=== PATIENT | male | born 1960 ===

== ENCOUNTER 2017-01-15 11:30 | Inpatient (IN) | payer MEDICARE ==
[~2017-01-15] VITALS: Ht 172.7 cm; Wt 97.9 kg
--- NOTE | ~2017-01-15 | OR ---
PATIENT'S NAME: ELIU RICHARDSON [facility] AGE: 56 Y [address] ROOM: [place] [address] LOCATION: [facility] [place] ADMIT DATE: 01/15/2017 OR/Procedure Report DISCHARGE DATE: 01/22/2017 FAMILY PHYSICIAN: Jelani Tello MD ATTENDING PHYSICIAN: Jelani Tello SURGEON: Lester Khan MD OPTOMECHANICAL ENGINEER: DATE OF PROCEDURE: 01/18/2017 PREOPERATIVE DIAGNOSIS: Left knee pain and effusion. POSTOPERATIVE DIAGNOSIS: Left knee pain and effusion. OPERATION: Aspiration, left knee. INDICATIONS: This is a 56-year-old male with pain and effusion in his left knee. DESCRIPTION OF PROCEDURE: The patient was seen in his room and his left knee prepped with chlorhexidine. An 18-gauge needle was used in the suprapatellar pouch and 35 mL of cloudy yellow fluid was aspirated. This was sent to the lab for cell count, crystals, Gram stain, and cultures. The 18-gauge needle was left in the joint and the joint injected with 2 mL of Xylocaine, 2 mL of Marcaine, and 80 mg of Depo-Medrol. The needle was removed. The patient tolerated the procedure well. MD MAGGI TIAN/modl /[id number] d: 01/18/172112 t: 01/27/17 1036, OPERATIVE SUMMARY
--- NOTE | ~2017-01-15 | CON ---
PATIENT'S NAME: ELIU RICHARDSON [facility] AGE: 56 Y [address] ROOM: [address] [address] [facility]: [facility] ADMIT DATE: 01/15/2017 Consultation DISCHARGE DATE: FAMILY PHYSICIAN: CODEY TELLO MD ATTENDING PHYSICIAN: CODEY TELLO REFERRING PHYSICIAN: Jacky Valencia MD HISTORY OF PRESENT ILLNESS: The patient's regular speech professor is Dr. Valnecia. Mr. Richardson is admitted from Dr. Tello office where he presented with volume overload. Mr. Richardson has history of congestive heart failure since at least 2011; at that point, he received cardioverter-defibrillator. Recently, he was taking no medications for heart failure, he says that he cannot afford them; although, he has Medicare has not applied for a Part D plan. He says that he was not aware of any fluid restriction and was not aware about dietary restrictions. He monitors his weight a few times a week. He indicates that his dry weight is about 228 and now he is up to 252. He denies any chest pain. He is diabetic. MEDICATIONS: The outpatient medications he mentioned was: 1. Sitagliptin metformin 1 tablet twice a day. 2. Insulin glargine 50 units subcutaneously. 3. Acetaminophen as needed. FAMILY HISTORY: His family history shows that both his parents from myocardial infarctions in their 80s. SOCIAL HISTORY: The patient is . 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 He stopped smoking more than 20 years ago. He denies any drug use and any significant alcohol use. PAST MEDICAL HISTORY: Reveals that he had at least 1 stent in the left anterior descending artery in January 2005. The patient and his do not really remember if he had any more and do not have the wallet cards with them. He also has history of morbid obesity and sleep apnea. PAST SURGICAL HISTORY: Cardioverter-defibrillator, left wrist tendon transfer, and C-spine and left knee. REVIEW OF SYSTEMS: Positive for gradual lower peripheral edema. He denies chest pain and denies syncope. Remaining systems are negative. PATIENT'S NAME: ELIU RICHARDSON [facility] AGE: 56 Y [address]: [address] [address] LOCATION: [facility] ADMIT DATE: 01/15/2017 Consultation DISCHARGE DATE: FAMILY PHYSICIAN: CODEY TELLO MD ATTENDING PHYSICIAN: CODEY TELLO PHYSICAL EXAMINATION: VITAL SIGNS: He is 5 inches, 8 ounces, weighs 115.2 kg, blood pressure 109/69, pulse is 101, temperature 98 degrees. NECK: There is some elevation of the jugular venous pressure. No carotid bruits. Neck is supple. HEAD: Normocephalic and atraumatic. LUNGS: There are basilar [facility] up bilaterally. HEART: Regular first and second heart sounds. ABDOMEN: Obese, nontender. EXTREMITIES: Lower extremities, 3+ edema up to the midthighs. There is no scrotal edema. There is no presacral edema. Pedal pulse is not easily palpable. DIAGNOSTIC STUDIES: Electrocardiogram shows sinus rhythm, right axis, low voltage in the limb leads, and poor R-wave progression in the precordial leads. Chest x-ray was interpreted as showing stable cardiomegaly, mild pulmonary venous hypertension and no CHF or pneumonia. Echocardiogram has been completed, which I interpreted. It shows that there is biventricular enlargement. The ejection fraction is about 10% to 15%. IMPRESSION: 1. Severe systolic heart failure, unqxm-du-hecnchy. 2. Coronary artery disease. 3. Noncompliance with medications. 4. Diabetes type 2. 5. Obesity. PLAN: I will put the patient wlglpb-qac-lrrvz intravenous Lasix with a morning dose of metolazone. I will start him on a low dose of carvedilol and as his blood pressure tolerates add either an SOY inhibitor or Entresto if I can figure out a way to make it affordable. We will check a D-dimer. His 1st troponin was by Dr. Tello was mildly elevated; so, we will repeat it. Thank you for allowing [facility] to assist in the care of your patient. KANDY MARIE MD PE/joanl PATIENT'S NAME: ELIU RICHARDSON [facility] AGE: 56 Y [address] ROOM: [place] [address] LOC[facility] ADMIT DATE: 01/15/2017 Consultation DISCHARGE DATE: FAMILY PHYSICIAN: CODEY TELLO MD ATTENDING PHYSICIAN: CODEY TELLO /[id number] d: 01/16/17 0038 t: 01/16/17 1131, CONSULTATION REPORT
--- NOTE | ~2017-01-15 | DS ---
PATIENT'S NAME: ELIU RICHARDSON [facility] AGE: 56 Y [address] ROOM: [address] [place], [place] [address] LOCATION: [facility] [place] ADMIT DATE: 01/15/2017 Discharge Summary DISCHARGE DATE: 01/22/2017 FAMILY PHYSICIAN: Jelani Tello MD ATTENDING PHYSICIAN: Jelani Tello FINAL DIAGNOSES: 1. Nyrcb-ho-bhrjczo congestive heart failure, severe. 2. History of coronary artery disease. 3. Noncompliance. 4. Diabetes mellitus, type 2. 5. Morbid exogenous obesity. HOSPITAL COURSE: The patient was admitted to the hospital with marked increasing edema and 3-pillow orthopnea. Consultation was obtained with Dr. Pugh, preconstruction manager. The patient's primary preconstruction manager, Dr. Valencia was out of town and Dr. Pugh was covering for him. The patient was admitted to the hospital. His EKG showed sinus rhythm with low voltage. His echocardiogram showed a mild pulmonary venous hypertension and echo showed 10% to 15% ejection fraction. The patient during his hospitalization required intensive care mobilization. He also developed left knee pain and was seen in consultation by Dr. Lester Khan, orthopedic surgeon, and had his knee drained. See Dr. Khan's notation. The patient was felt to have reached maximal hospital benefit with medication adjustment on the date shown and was dismissed from the hospital in improved condition with a guarded prognosis because of his noncompliance with diabetes mellitus type 2 requiring insulin and his chronic congestive heart failure with acute exacerbation. He is to see me in the office in 1 week and follow up with cardiologists as they indicate. The cardiologists have blessed his medication on dismissal. JELANI TELLO MD CLIENT ACCOUNT REPRESENTATIVE/modl /[id number] d: t: 01/27/17 0945, DISCHARGE SUMMARY
--- NOTE | ~2017-01-15 | CON ---
PATIENT'S NAME: [facility] AGE: 56 Y [address] ROOM: [place] [address] LOCATION: [facility] ADMIT DATE: 01/15/2017 Consultation DISCHARGE DATE: FAMILY PHYSICIAN: CODEY JC MD ATTENDING PHYSICIAN: CODEY JC REFERRING PHYSICIAN: Jacky Valencia MD SUBJECTIVE: I was asked to see this 56-year-old male diabetic, who is hospitalized for an episode of acute on chronic congestive heart failure. He has a history of [place] in the past and this morning, he awakened with the swelling and pain in his left knee. His left knee has a history of having had a patellar realignment procedure of many years ago for patellar dislocations. ALLERGIES: NO KNOWN ALLERGIES. MEDICATIONS: 1. Insulin glargine 50 units subcu. 2. Sitagliptin metformin 1 tablet twice a day. OPERATIONS: He has had cardioverter/defibrillator since 2011. He has had tendon transfer of his left wrist for apparently a wrist drop in the past. He had his left knee patellar realignment in the remote past and also an operation on his cervical spine. ILLNESSES: He has diabetes type 2. He also has coronary artery disease and has had several procedures from that. HABITS: He denies tobacco, drug, or alcohol use or abuse. FAMILY HISTORY: Parents lived to be in their 80s and from heart attacks. REVIEW OF SYSTEMS: He denies chest pain or difficulty breathing. He does note fluid retention in his legs. He has sleep apnea and uses CPAP machine. He has a history of morbid obesity. PHYSICAL EXAMINATION: GENERAL: This is a well-developed and well-nourished male, who is alert and cooperative. VITAL SIGNS: Pulse 93, respirations 13, temperature 98 degrees, O2 saturation PATIENT'S NAME: [facility] AGE: 56 Y [address] ROOM: [place] [address] LOCATION: [facility] ADMIT DATE: 01/15/2017 Consultation DISCHARGE DATE: FAMILY PHYSICIAN: CODEY JC MD ATTENDING PHYSICIAN: CODEY JC 97%, and blood pressure 92/59. HEENT: Head normocephalic and atraumatic. NECK: Supple. CHEST: Nontender. HEART: Regular rhythm. LUNGS: Clear to auscultation. ABDOMEN: Soft. EXTREMITIES: He has about 2+ pitting edema of both his lower extremities. On examination of his left knee, he has a well-healed long anteromedial surgical scar. There is no erythema about the knee. He is able to extend the knee fully and he does have at least a 2/4 effusion in the knee. IMAGING: Single knee radiographs from 2004 is reviewed. This shows a staple in the anterior tibial tubercle with complete loss of the patellofemoral joint space and calcification of the medial and lateral menisci. IMPRESSION: 1. Probable pseudogout, but we are not able to rule out septic arthritis. 2. Congestive heart failure. 3. Insulin-dependent adult diabetes mellitus. 4. Obesity. PLAN: The knee will be aspirated and injected as index of suspicion for sepsis is quite low. The procedure, its risks, benefits, and alternatives were discussed with the patient, who appears to understand and requests to proceed. MD MAGGI TIAN/jillian /[id number] d: 01/18/17 2139 t: 01/20/17 0910, CONSULTATION REPORT
--- NOTE | ~2017-01-15 | ECHO ---
Transthoracic Echocardiography Report (TTE) Demographics Patient Name ELIU RICHARDSON Date of Study 01/15/2017 Patient Number [id number] Visit Number [id number] Date of 1960 Room Number G6211 Gender Male Number Age 56 year(s) Referring Elisha Gaxiola Pinball Machine Repairer Latrice Atkinson RVT, Physician RD Physician Interpreting Keaton Jama Data Control Clerk Supervisor Physician Sal LOPEZ Supervising Ordering Elisha Gaxiola MD, MD/MLP Physician Nurse Stress Intern Retail Conclusions Summary Technically difficult exam. Definity used to better delineate endocardial borders. The left ventricle is mildly to moderately dilated . Estimated EF 15% Diastolic assessment reveals Grade III restrictive diastolic dysfunction. Moderately dilated right ventricle with severely reduced function. Device lead noted in the right ventricle. Mild tricuspid regurgitation by color Doppler. There is moderately pulmonary hypertension. The pulmonary pressure (RVSP) is 55 mmHg. Procedure Type of Study TTE procedure:2D Echocardiogram, Echo with Contrast. Procedure Date Date: 01/15/2017 Start: 01:27 PM Study Location: Inpatient Portable Technical Quality: Limited visualization due to body habitus. Indications:CHF. Appropriate Use Criteria: 8 Patient Status: Routine Contrast Medium: Definity. Amount - 4 ml Rhythm: NSR HR: 97 bpm BP: 116/73 mmHg Allergies - No known allergies. M-Mode/2D Measurements LV Diastolic Dimension: 5.59 cm LV Systolic Dimension: 4.9 cm LV Septum Diastolic: 1 cm LV PW Diastolic: 0.75 cm AO Root Dimension: 3.1 cm Cardiac Output: 2.72 l/min AV Cusp Separation: 2 cm RV Diastolic Dimension: 3.89 cm LA volume: 58 ml LVOT: 2 cm RV Base: 4.16 cm LVOT VTI: 8.93 cm RV Mid: 3.71 cm LV Stroke volume: 28.04 ml TAPSE: 1.46 cm TDI-S': 12.9 cm/s Doppler Measurements AV Peak Velocity: 0.8 m/s MV Peak E-Wave: 1.38 m/s AV Peak Gradient: 2.55 mmHg MV Peak A-Wave: 0.23 m/s AV Mean Gradient: 2 mmHg MV E/A Ratio: 6 LVOT Peak Velocity: 0.55 m/s MV P1/2t: 33 msec TR Gradient:39.94 mmHg PV Peak Velocity: 0.78 m/s Estimated RAP:15 mmHg PV Peak Gradient: 2.4 mmHg Estimated RVSP: 55 mmHg Estimated PASP: 54.94 mmHg E' Septal Velocity: 0.09 m/s A' Septal Velocity: 0.04 m/s E' Lateral Velocity: 0.14 m/s A' Lateral Velocity: 0.05 m/s Findings Left Ventricle The left ventricle is mildly to moderately dilated . Diastolic assessment reveals Grade III restrictive diastolic dysfunction. Right Ventricle Moderately dilated right ventricle with severely reduced function. Device lead noted in the right ventricle. Left Atrium The left atrium is mildly dilated. There is no evidence of patent foramen ovale or atrial septal defect by color Doppler. Right Atrium The right atrium is moderately dilated. Dilated IVC with poor inspiratory collapse consistent with elevated RA pressure. Mitral Valve Mild mitral annular calcification. Mild mitral regurgitation by color Doppler. Aortic Valve The aortic valve is mildly sclerotic. Tricuspid Valve Mild tricuspid regurgitation by color Doppler. There is moderately pulmonary hypertension. The pulmonary pressure (RVSP) is 55 mmHg. Pulmonic Valve Normal pulmonic valve structure and function. Pericardial Effusion No evidence of pericardial effusion. Miscellaneous Visualized portions of the aortic root and ascending aorta appear normal in size. Pleural Effusion No evidence of pleural effusion. Contractility Score LV regional wall motion:(0-Non visualized 1-Normal 2-Hypokinesis 3-Akinesis 4-Dyskinesis 5-Aneurysm) Signature dtt: Renzo Pugh dtd: 01/15/17 1327 Physician Self Edit
[2017-01-15] MEDS ORDERED: JANUMET XR 1001 EACH PO (13:59)
[2017-01-15] MEDS ORDERED: TOUJEO SOL300 UNIT/1 SUB-Q (14:00)
--- NOTE | 2017-01-15 14:24 | NUR ---
ADMITTED TO [facility] @ [address] SAGRARIO JC OFFICE. PATIENT WAS A WALK-IN THIS MORNING WITH C/O FLUID RETENTION AND NOT BEING ABLE TO SLEEP. STATES THAT HE HAS GAINED 20 LBS IN THE LAST 2 WEEKS. DENIES SHORTNESS OF BREATH AT THIS TIME. HISTORY OF CHF, CAD, AND UNCONTROLLED DM. FULL CODE ORDERED BY DR. JC. [facility].
[2017-01-15 15:17] LABS: BASOPHIL % 0.3 %; EOSINOPHIL # 0.2 K/uL (0.0-0.5); EOSINOPHIL % 1.7 %; HEMATOCRIT 41.7 % (37.0-53.0); HEMOGLOBIN 13.8 g/dL (12.0-17.0); IMMATURE GRANULOCYTE % 0.3 %; LYMPHOCYTE # 1.6 K/uL (0.8-4.0); LYMPHOCYTE % 18.6 %; MCH 30.8 pg (27.0-34.0); MCHC 33.1 gm/dL (32.0-36.5); MCV 93.1 fl (83.0-98.0); MONOCYTE # 0.9 K/uL (0.0-1.0); MONOCYTE % 9.8 %; MPV 9.4 fl (9.4-12.4); NEUTROPHIL % 69.3 %; NRBC % 0 /100WBC (0-0.00); PLATELET COUNT 240 K/uL (150-450); RBC 4.48 M/uL (4.00-6.00); RDW-CV 12.5 % (11.9-14.6); WBC 8.7 K/uL (4.0-11.0)
[2017-01-15 15:35] LABS: ALBUMIN 2.6 gm/dL (3.5-5.0); ANION GAP 11.1 (10.0-19.0); POTASSIUM 4.1 mMol/L (3.7-5.1); TOTAL BILIRUBIN 0.6 mg/dL (0.0-1.5); TOTAL PROTEIN 5.7 g/dL (6.0-8.4)
--- NOTE | 2017-01-15 19:29 | NUR ---
Significant Event: A/O X3. UP WITH 1 ASSIST, GB. DENIES PAIN. 3+ EDEMA TO BLE. IV LASIX 40 MG X1 AND SCHEDULED IV 60 MG GIVEN, GOOD UOP SINCE. VOIDING PER URINAL. MIDLINE PLACED TO LEFT UPPER ARM, SL'D, GOOD BLOOD RETURN. ROOM AIR. DENIES PAIN. ECHO DONE. DR. MARIE CONSULTED AND VISITED WITH PATIENT AND . PT/OT EVALUATED. Follow up: CONTINUE TO MONITOR.
[2017-01-16 05:35] LABS: ALBUMIN 2.5 gm/dL (3.5-5.0); CALCIUM 8.4 mg/dL (8.5-10.5); TOTAL PROTEIN 5.6 g/dL (6.0-8.4)
[2017-01-16 05:42] LABS: ANION GAP 13.7 (10.0-19.0); POTASSIUM 3.7 mMol/L (3.7-5.1); TOTAL BILIRUBIN 0.4 mg/dL (0.0-1.5)
--- NOTE | 2017-01-16 05:56 | NUR ---
A&Ox3. Hypoglycemic this shift. 0232 BS was 65, now 180. Diaphoretic. Temp dropped from 98.[address] Tello. Gave 1gm Rocephin IM and warm blankets. Temp now 94.4. Continue to monitor. UOP 5,050ml this shift, uses urinal. 1800ml daily fluid restriciton. 3+ pitting edema BLE. SBP 100-110s. HR 90s. Up 1A.
[2017-01-16] MEDS ORDERED: MUCINEX600 MG PO (10:42)
[2017-01-16] MEDS ORDERED: ASPIRIN (CHILDR81 MG PO (10:43)
--- NOTE | 2017-01-16 17:24 | NUR ---
Significant Event: PT UP IN RECLINER ALL SHIFT, UP TO BR PER SELF STEADY ON FEET. ON TELEMETRY NOW FROM WALL MONITOR. USES URINAL TO MEASURE OUTPUT.NEW MEDS STARTED. LOW BP THIS AFTERNOON. COOPERATIVE WITH CARES, VSS. Follow up: MONITOR
[2017-01-17 04:23] LABS: ANION GAP 9.3 (10.0-19.0); CALCIUM 8.6 mg/dL (8.5-10.5); MAGNESIUM 1.8 mg/dL (1.8-2.6); POTASSIUM 3.3 mMol/L (3.7-5.1)
--- NOTE | 2017-01-17 05:26 | NUR ---
Significant event: A/O x 3. up with SBA in room. Tylenol given at HS per request of patient to help him rest. HS accucheck was 99 patient refused levemir stating he did not want his blood sugar dropping like it did the other night. Blood pressures have been in the higher 90's for both 1st and 3rd assessments, all other VSS
[2017-01-18 03:04] LABS: BASOPHIL # 0.1 K/uL (0.0-0.2); BASOPHIL % 0.6 %; EOSINOPHIL # 0.2 K/uL (0.0-0.5); EOSINOPHIL % 1.8 %; HEMATOCRIT 43.4 % (37.0-53.0); HEMOGLOBIN 14.4 g/dL (12.0-17.0); IMMATURE GRANULOCYTE % 0.2 %; LYMPHOCYTE # 1.6 K/uL (0.8-4.0); LYMPHOCYTE % 19.9 %; MCH 30.9 pg (27.0-34.0); MCHC 33.2 gm/dL (32.0-36.5); MCV 93.1 fl (83.0-98.0); MONOCYTE # 1.1 K/uL (0.0-1.0); MONOCYTE % 13.8 %; NEUTROPHIL # (ANC) 5.2 K/uL (1.4-9.0); NEUTROPHIL % 63.7 %; NRBC % 0 /100WBC (0-0.00); RBC 4.66 M/uL (4.00-6.00); RDW-CV 12.5 % (11.9-14.6); WBC 8.2 K/uL (4.0-11.0)
[2017-01-18 03:05] LABS: PLATELET COUNT 313 K/uL (150-450)
[2017-01-18 03:14] LABS: BICARBONATE 35.6 mmol/L (18.0-23.0); PCO2 50 mmHg (35-45); PO2 98 mmHg (80-90)
[2017-01-18 03:28] LABS: ALBUMIN 2.7 gm/dL (3.5-5.0); ANION GAP 11.4 (10.0-19.0); CALCIUM 8.3 mg/dL (8.5-10.5); CREATININE 1.2 mg/dL (0.6-1.3); POTASSIUM 3.4 mMol/L (3.7-5.1); TOTAL BILIRUBIN 0.4 mg/dL (0.0-1.5); TOTAL PROTEIN 5.8 g/dL (6.0-8.4)
--- NOTE | 2017-01-18 05:07 | NUR ---
Patient A/Ox3. FC appropriate. Stopped Dopamine gtt and started Levo gtt. Currently running Levo gtt at 0.06mcg/kg/min. HR 90s, SBP 90-110s, MAPs 70s. Afebrile. Continues on Nasal Canula at 2L with o2 sats in upper 90s. Fluid Restrict of 1800ml continues. Follow up: continue to wean Levo.
--- NOTE | 2017-01-18 15:04 | NUR ---
Significant Event: Patient alert and oriented. Vital signs stable on room air. To keep MAPs >65. Levophed currently off since 1300. Up to chair with stand-by assist. Given Tylenol for pain in the left knee with relief of pain noted. Patient on a fluid restriction of 1800mL. Accuchecks ACHS. Pleasant and cooperative with cares. Has rested well during shift. Follow up:
--- NOTE | 2017-01-19 04:29 | NUR ---
Significant Event: AOx3. SR-ST, MAP >65 throughout shift, No need for levophed. Afebrile. On room air, lung sounds clear and dim.. Bowel sounds active, bm x1. Voids per urinal. No new or worsening skin issues. Follow up: Status change.
[2017-01-19 06:44] LABS: ALBUMIN 2.8 gm/dL (3.5-5.0); ALK PHOS 163 IU/L (33-138); ALT 79 IU/L (12-78); ANION GAP 11.3 (10.0-19.0); AST 34 IU/L (10-40); BLOOD UREA NITROGEN 26 mg/dL (6-24); CALCIUM 8.8 mg/dL (8.5-10.5); CHLORIDE 101 mMol/L (96-110); CO2 26 mMol/L (22-32); CREATININE 0.9 mg/dL (0.6-1.3); POTASSIUM 4.3 mMol/L (3.7-5.1); SODIUM 134 mMol/L (135-145); TOTAL PROTEIN 6.5 g/dL (6.0-8.4)
[2017-01-19 06:46] LABS: TOTAL BILIRUBIN 0.8 mg/dL (0.0-1.5)
--- NOTE | 2017-01-19 15:51 | NUR ---
Diabetes Center note 1530 Patient is know to us in Diabetes Center, as in past years he has received comprehensive education to assist in managing his diabetes. Consult received in Diabetes Center for CDE to see patient regarding Diabetes management, reported poor home glycemic control. Patient states he is not checking his blood sugar at home on a regular bases and admits that he has not taken his insulin on regular bases either. Patient's main concern is not being able to afford his medications, as he only has Medicare part D, no medication assistance. Will have Care Management work with patient to assess his financial needs and see if he may qualify for medication assistance program. Diabetes [employer] booklet with the Diabetes Survival Skills Checklist provided and will check in with him 01/20/17 to assess further educational needs.
--- NOTE | 2017-01-19 16:04 | NUR ---
Introduced self and CM role to Nikolay. Nikolay tells me that he lives at home in [place], [place] with his , [facility] and he plans to return there upon dismissal. PCP is . Nikolay manages his medications at baseline. Denies having a Medicare Part D plan at this time, but states "I am working on trying to get one as I will probably have some pretty expensive medications coming up now that I have been here." Reviewed his med list from when he was admitted, he was only on 5 at baseline, three of which were OTC, the other two he tells me he had been getting free samples from office. I let him know that once diabetic ed had seen him and decided what he would go home on for medications, I would make a referral to [facility] to see if they might be able to help him out with the cost of his meds. In the meantime, told him that his best option would be to continue getting samples from or getting them filled at [facility] as usually that is the cheapest place to get them done at. He says that he will do that. He denies any needs for DME upon dismissal. States he doesn't feel like he will need a FWW when he goes home. If he does, explained to him where he could obtain one in town and how he could get a script from as well. HE voiced understanding to this. No other questions, needs or concerns at this time. Updated his RN Curt to all of the above and also reviewed his chart to see if Diabetic Ed had seen yet or not, as of 1529 today they had not. CM to continue to follow and assist. Plan home.
--- NOTE | 2017-01-19 16:22 | NUR ---
Significant Event: A/O x3. SR, with a noted 13 beats of VT at 0554, INVOICE CONTROL CLERK notified, HRs 90s, afibrile, +3 edema in BLE. Lung sounds are clear and dim throughout, no cough, Sa02 >93% on RA. Bowel sounds are active, BM x3, good appetite, BS treated. Voids per urinal. Abulated in [place]dana x2. Showered. Changed to intermediate status. Follow up:Continue.
--- NOTE | 2017-01-20 05:07 | NUR ---
Significant Event: PATIENT ALERT AND ORIENTED X3 THIS SHIFT. PUPILS EQUAL AND REACTIVE. DENIES ANY N/T. AFEBRILE. HRs 96-106, SBP 100-118 THIS SHIFT. O2 SATS IN THE LOW 90s ON ROOM AIR. LUNG SOUNDS CLEAR AND DIMINISHED. 3+ EDEMA IN LOWER EXTREMITIES. 2500 CALORIE ADA DIET WITH A 1800ML FLUID RESTRICTION. PATIENT COMPLIANT WITH THIS. VOIDS PER URINAL WITH ADEQUATE OUTPUT. 1 LARGE BM THIS SHIFT. LEFT UPPER EXTREMITY MIDLINE SL. COMPLIANT WITH ALL CARES THIS SHIFT, Follow up:
--- NOTE | 2017-01-20 10:49 | NUR ---
Diabetes center note: [id number] Spent much time in reviewing necessary diabetes related topics and discussed A1C of 18 %, which was done in Dr. Tello office on 12/31/16, discussed risks of complications heart, eyes, kidngeys, nerves, and how we can reduce these risks with proper control of blood sugars. Education provided on all topics as guided by the Diabetes Survival checklist. Patient refused a new blood glucose meter, states he likes the one he has at home, but will need new script of strips, CDE called [facility] and they state that they have not filled a script for him in over 1.5 years, so they don't know what brand of accu chek meter it is. Encouraged patient to take meter with him to pharmacy when he is dismissed to get proper type of strips. Called to Care Management and Naomi is arranging for patient to sign up with [facility] medication assistance program, as patient states he doesn't have medication coverage. Naomi notified that he is going to be dismissed on the same medication for diabetes that his is on here in the hospital which Dr. Tello ordered, Levemir 40 units and Novolog as per agressive sliding scale. Dr. Abarca office also has samples of Levemir and Novolog vials for patient to picker machine operator after he is dismissed. A copy of the aggressive sliding scale insulin Novolog is provided to patient and how to use at home, patient states understanding importance, and to record all blood sugar in log book, take to MD appt. Emphasized importance of getting back on his insulin and STAYING on his insulin, risks of not taking insulin. Dr. Tello also stated that when patient was in the office 2 weeks ago, Dr. Tello reported giving him a "...come to Omar talk" about his health and the risks associated with not following recommendations made by MD. All of this information is discussed with the patient and a copy of the Survival skills checklist is placed on his chart,
--- NOTE | 2017-01-20 11:46 | NUR ---
A-SCREENED D/T LOS ADMITTED FOR ACUTE ON CHRONIC CHF; 3+ EDEMA TO BLE UPON ADMIT HT: 68 IN. WT: 100.2 KG. BMI: 33.5. LABS: NA 134, K+ 4.3, BUN/WATER WELL DRILLER 26/0.9, ALB 2.8 MEDS: MAG-OX, LIPTIRO, LEVEMIR, NOVOLOG (AGG SS) DIET RX: CONSISTENT CARB/2-3 GM NA W/1500 ML FLUID RESTRICTION. PO INTAKE HAS BEEN 75-100%. WT IS DOWN FROM ADMIT WT, BUT SUSPECT WT CHANGE D/T FLUID CHANGES. EST NUTR NEEDS: 2129-8273 KCALS (20-22 KCALS/KG) 100-110 GM PROTEIN (1.0-1.1 GM/KG) FLUID PER MD D-NOT AT NUTRITON RISK; NO NUTRITION DX IDENTIFIED I-CONTINUE W/CURRENT DIET RX M/E-F/U PO INTAKE, WT, AND POC IN 5-7 DAYS
--- NOTE | 2017-01-20 13:36 | NUR ---
Talked with Tiffany in Diabetic Ed, she states that she visited with Nikolay and about dismissal medications. Per Tiffany, states to her that Nikolay will go home on the same medications that he came in on, Novalog and Levemir. I filled out the [employer] form, had Nikolay sign it, faxed it over to [facility]. Also left a copy on his chart. Faxed completed [employer] form, facesheet and inpatient diabetic survial sheet (completed by Nikolay and Tiffany) over to [facility] so they could follow up with Nikolay re:his diabetic needs. In the meantime, Tiffany states, Nikolay is going to continue to get free samples from clinic and she will make sure that he gets sent home with some when he goes to dismiss from our facility. CM to continue to follow and assist.
--- NOTE | 2017-01-20 15:14 | NUR ---
Diabetes center note: 1230 spouse in room at this time, again went over all of the teaching with her, same as I educucated patient on this a.m. Stressed importance of follow up with Dr. Tello and to obtain insulin samples from Dr. Tello office after dismissal from this hospital stay. Care management working with them for paperwork for medication assistance and Medicare medication application. Stressed importance of following the instructions provided for testing pre meal blood sugars and following the insulin doses for aggressive sliding scale, as Dr. Tello wants him to do same regimen as he is on her in the hospital. RD consult submitted, as spouse and patient has questions regarding meal planning, details of sodium and carb counting (spouse thinks the menu's here should have the calories printed on menus and "pre package foods" for patient to eat Dismissal pending, when Dr. Valencia and Dr. Tello approves.
--- NOTE | 2017-01-20 15:46 | NUR ---
Significant Event:Patient is alert and oriented times three. PERRLA. CSM intact. Denies numbness or tingling. Moves extremities spontaneously and on command. Equal strength noted throughout. VSS on room air. Pacer. Lungs clear and diminished. Bowel sounds active, no bm this shift, patient is passing flatus. Patient voids per the bathroom or urinal with 1 assist and gaitbelt. Edema noted to bilateral lower extremities. ACHS accu checks, aggressive sliding scale, coverage needed. family life educator in to see patient several times this shift and working with JACKELINE and Dr. Tello on discharge plan. No complaints of pain. Patient takes medications whole without difficulty. Midline IV to his left upper extremity is saline locked. 2500 Kcal diet, 1800ml fluid restriction. Refused a shower this shift. Follow up:Discharge to home soon.
--- NOTE | 2017-01-21 12:39 | NUR ---
CONSULT RECEIVED FOR DIET ED D/T PT AND FAMILY HAVING LOTS OF QUESTIONS. VISITED W/PT AND PT'S . PT STATES THAT HE FOLLOWS A DIABETIC DIET AT HOME, BUT WAS UNABLE TO VERBALIZE CHO CONTAINING FOODS. WENT OVER CHO CONTAINING FOODS, PORTION SIZES, AND NUMBER OF CHOS HE SHOULD HAVE AT EACH MEAL. PT ASKED MANY QUESTIONS THROUGHOUT THE VISIT. HIS DID NOT PARTIPATE MUCH; SAID THINGS UNDER HER BREATH OR INTERJECTED WHEN SHE FELT LIKE THE PT WAS NOT BEING HONEST IN HIS REPORTING OF WHAT HE ATE. SHE DID STATE, "I DO NOT KNOW WHY YOU ARE GOING OVER THIS, HE ISN'T GOING TO DO IT ANYWAYS." PT WAS ABLE TO VERBALIZE WHAT FOODS CONTAIN CHOs AND WAS ABLE TO COUNT THE CARBS IN THE EXAMPLE OF A MEAL. WRITTEN INFORMATION PROVIDED, ALONG WITH RD CONTACT INFO. ALSO ENCOURAGED PT TO SEE THE OUTPT RD; INFORMATION WAS GIVEN TO PT RE: HOW TO SET THAT UP. DISCUSSED WAYS TO LOWER THE SODIUM IN HIS DIET ALSO; HE HAS FREEZER MEALS WHEN HIS DOES NOT COOK FOR HIM, PER HIS 'S REPORT. DISCUSSED HEALTHIER VERSIONS OF THE HUNGRY MAN MEALS HE USUALLY HAS.
--- NOTE | 2017-01-21 14:37 | NUR ---
Diabetes Center note Follow up from yesterday, patient waiting for MD to give dismissal orders. RD did talk to patient regarding meal planning, portion sizes, etc. CDE again stressed importance of taking insulin, to obtain insulin samples from Dr. Tello office as soon as he is dismissed, pending [employer] medication assistance. Agrees to call diabetes center if other questions or concerns.
--- NOTE | 2017-01-21 14:43 | NUR ---
Call from Hayley at [facility] medications access, she tells me that Don came in to visit with her and candi her 2016 tax return with her. The tax return states that they made over $171,000 last year so this make Nikolay unable to get help from [facility] for the cost of his diabetic medications. also tells Hayley that "they just sold some land for around $600,000 but that check hasn't came in yet, so we might have so other funds as well." Hayley indicates to me that because of making to much financially, he doesn't qualify for [facility]. Resources for [facility] dept and also [facility] were given to via phone call from me again this morning so she could follow up with them to try to get a Part D perscrition drug plan figured out for Nikolay. I thanked Hayley for her help and let her know that I would update to this as well. Phoned over to , updated him to the above, he tells me that this is fine, he will just keep helping in with samples and then hope he gets his Part D plan figured out ADITYA. to continue to follow and assist. Plan home.
--- NOTE | 2017-01-21 17:29 | NUR ---
Significant Event: A/O x3, cooperative with cares. VSS, SBPs 100-120s, HRs 80-100s, on room air. No c/o pain. Up with SBA/ad reza in room; ambulate saldana with therapy. Tax Commissioner in to visit with patient et ; diabetic ed followed up with patient. Follow up:
--- NOTE | 2017-01-21 18:28 | NUR ---
significant event: Received from PCU at 1710. Patient is alert and oriented. Is on 1800 ml fluid restriction. ACHS accuchecks. Midline SL to left upper arm. Denies pain.
--- NOTE | 2017-01-22 04:40 | NUR ---
Significant Event: Sleeping well tonight. Afebrile, VSS. Up in room independently. Denies pain. 1800ml fluid restriction continues, 630ml in this shift. HS accucheck 151, 4 units Novolog given per SS. Midline IV to L) upper arm patent and saline locked. Pleasant and cooperative with cares. Follow up:
--- NOTE | 2017-01-22 11:28 | NUR ---
Diabetes consult: Patient reports he may be discharged today or tomorrow. He states he was told by Dr. Tello that he could obtain an insulin sample from the clinic upon discharge. The patient's reports having had diabetes education "years ago". The patient had an elevated A1C and he is interested in returning for diabetes and diet education as an outpatient. Referral was faxed to Dr. Clara Tello. Patient given tentative dates of appointments, pending referral. Will continue to follow.
--- NOTE | 2017-01-22 12:46 | NUR ---
I have examined the student charting and find it acceptable. ADINA Stack
[2017-01-22] MEDS ORDERED: MAG-OX-400(241400 MG PO (16:18)
[2017-01-22] MEDS ORDERED: TYLENOL325 MG PO (16:19)
[2017-01-22] MEDS ORDERED: LOPRESSOR25 MG PO (16:22)
[2017-01-22] MEDS ORDERED: LIPITOR20 M1 PO (16:24)
[2017-01-22] MEDS ORDERED: NOVOLOG100 UNIT/M SUB-Q (16:56)
[2017-01-22] MEDS ORDERED: LEVEMIR100 UNIT/1 SUB-Q (16:56)
--- NOTE | 2017-01-22 17:35 | NUR ---
DISCHARGE: D: ORDERS RECEIVED FOR THE PATIENT TO BE DISCHARGED TO HOME TODAY. I: DISMISSAL INSTRUCTIONS WERE PREPARED AND REVIEWED WITH THE PATIENT AND HIS AT BEDSIDE AFTER VIRTUALLY WAS NO EFFECTIVE. THE FOLLWOWING INFORMATION WAS DISCUSSED INCLUDING [facility] TEACHING SHEETS PROVIDED: HEART FAILURE-MAKING CHANGES TO YOUR DIET, COPIING WITH HEART FAILURE, WHAT IS HEART FAILURE, HEART FAILURE-MEDICINES TO HELP YOUR HEART, INSULIN ASPART, INSULIN DETEMIR, MAGNESIUM OXIDE, HYDROCHLOROTHIAZIDE, AND LIPITOR. THE VIRTUALLY NURSE DID CALL [facility] TO CHECK ON LUIS OF NEW PRESCRIPTIONS AND INFORMED THE PATIENT AND HIS . THE PATIENT'S WENT TO DR. JC OFFICE AND RECEIVED NOVOLOG AND LEVEMIR INSULIN BEFORE THE OFFICE CLOSED TODAY. R: THE PATIENT AND HIS BOTH VERBALIZED UNDERSTANDING OF THE DISMISSAL EDUCATION AT THE TIME OF TEACHING WITH NO FURTHER QUESTIONS.
== END 2017-01-22 18:48 | disposition disaster alternative care site (69) | DRG 292 ==
LOC: GPCU 11:32 → GICU 11:32 → GPCU 11:32 → GICU 01-18 01:45 → GPCU 01-20 18:46 → GMSU 01-21 17:24
PROVIDERS: Internal Medicine Cardiovascular Disease; ADMIT Family Medicine
PROC: 0S9D4ZX Drainage of Left Knee Joint, Percutaneous Endoscopic Approach, Diagnostic (ICD-10-PCS; principal; 2017-01-18)
PROC: 3E0U3BZ Introduction of Anesthetic Agent into Joints, Percutaneous Approach (ICD-10-PCS; principal; 2017-01-18)
PROC: 3E0U33Z Introduction of Anti-inflammatory into Joints, Percutaneous Approach (ICD-10-PCS; principal; 2017-01-18)
DX: I11.0 Hypertensive heart disease with heart failure (principal); I47.2 Ventricular tachycardia; I95.89 Other hypotension; E11.65 Type 2 diabetes mellitus with hyperglycemia; I27.2 Other secondary pulmonary hypertension; I50.23 Acute on chronic systolic (congestive) heart failure; I25.10 Atherosclerotic heart disease of native coronary artery without angina pectoris; E66.09 Other obesity due to excess calories; Z68.38 Body mass index [BMI] 38.0-38.9, adult; Z79.4 Long term (current) use of insulin; Z91.14 Patient's other noncompliance with medication regimen; Z87.891 Personal history of nicotine dependence; M11.20 Other chondrocalcinosis, unspecified site; E78.5 Hyperlipidemia, unspecified; Z95.810 Presence of automatic (implantable) cardiac defibrillator; M25.462 Effusion, left knee; I25.5 Ischemic cardiomyopathy
CPT/HCPCS: C1751; C8929; J0696; J1040; J1265; J1650; J1940; J7040; J7060; Q9957

== ENCOUNTER → 2017-01-29 | Outpatient (CLI) | payer MEDICARE ==
[~2017-01-29] MED LIST: ASPIRIN (CHILDR81 MG PO; JANUMET XR 1001 EACH PO; LEVEMIR100 UNIT/1 SUB-Q; LIPITOR20 M1 PO; LOPRESSOR25 MG PO; MAG-OX-400(241400 MG PO; MUCINEX600 MG PO; NOVOLOG100 UNIT/M SUB-Q; TOUJEO SOL300 UNIT/1 SUB-Q; TYLENOL325 MG PO
[2017-01-29 12:20] LABS: ANION GAP 10.3 (10.0-19.0); BLOOD UREA NITROGEN 15 mg/dL (6-24); CALCIUM 8.3 mg/dL (8.5-10.5); CHLORIDE 105 mMol/L (96-110); CO2 27 mMol/L (22-32); CREATININE 0.9 mg/dL (0.6-1.3); POTASSIUM 4.3 mMol/L (3.7-5.1); SODIUM 138 mMol/L (135-145)
== END ==
LOC: LGSOS 11:45
PROVIDERS: Internal Medicine Interventional Cardiology
DX: I50.9 Heart failure, unspecified (principal)

== ENCOUNTER → 2017-02-01 | Outpatient (CLI) | payer MEDICARE ==
[2017-02-01 11:05] LABS: ANION GAP 7.9 (10.0-19.0); CALCIUM 8.1 mg/dL (8.5-10.5); POTASSIUM 3.9 mMol/L (3.7-5.1)
== END ==
LOC: LGSOS 10:44
PROVIDERS: Internal Medicine Interventional Cardiology
DX: I50.9 Heart failure, unspecified (principal)